=== PATIENT | male | born 1955 | race Caucasian/White ===

== ENCOUNTER 2018-07-25 05:44 | Day surgery (SDC) | payer BC ==
--- NOTE | 2018-07-22 11:28 | HP ---
ANTICIPATED PROCEDURE: Colonoscopy. HISTORY OF PRESENT ILLNESS: The patient has problems with hemorrhoids. He has not had a recent endoscopic examination. He presents for complete evaluation and screening today. PAST MEDICAL HISTORY: ALLERGIES: NKDA. DUST, HAYFEVER. MEDICATIONS: Metoprolol, Zyrtec, Alprazolam. PAST SURGICAL HISTORY: Tonsillectomy. Hemorrhoidectomy. SOCIAL HISTORY: Negative. FAMILY HISTORY: Negative. PHYSICAL EXAMINATION: VITAL SIGNS: Normal. CHEST: Clear. COR: Regular. ABDOMEN: Satisfactory. IMPRESSION: Recent trouble with hemorrhoids. No recent screening. PLAN: He presents for screening.
[2018-07-25] MEDS ORDERED: DIPRIVAN 200 MG/20 ML IV ONE (05:45)
[2018-07-25] MEDS ORDERED: SUBLIMAZE 100 MCG/2 ML IV ONE (05:45)
[2018-07-25] MEDS ORDERED: Ketamine HCl 50 MG/ML IV ONE (05:45)
[2018-07-25] MEDS ORDERED: Lactated Ringers 1,000 ML IV ONE (06:38)
[2018-07-25] MEDS ORDERED: Lactated Ringers 1,000 ML IV SCH (07:00)
[2018-07-25 09:33] VITALS: PULSE 75; O2SAT 97
[2018-07-25 09:39] VITALS: BP 115/60
--- NOTE | 2018-07-25 11:43 | OP ---
SURGERY DATE/TIME: 07/25/2018 0840 PREOPERATIVE DIAGNOSIS: Blood per rectum, previous history of polyps. POSTOPERATIVE DIAGNOSES: 1) Mild to moderate diverticulosis sigmoid. 2) Severe internal and external hemorrhoids. PROCEDURE: Colonoscopy complete to cecum. SURGEON: Mushtaq Hassan M.D. ANESTHESIA: MAC. COMPLICATIONS: None. CONDITION: Stable. INDICATION: A patient requiring evaluation. DESCRIPTION OF PROCEDURE: Taken to endoscopy. MAC sedation provided. Bowel prep was good but not excellent. Scope advanced to the cecum. Base of cecum, ileocecal valve and appendiceal orifice normal. Ascending, hepatic, transverse, splenic, descending, sigmoid mild to moderate diverticulosis. Rectum and anus at least one severe internal and one severe external hemorrhoid. No polyps today. PLAN: Follow up in five years.
== END 2018-07-25 09:58 | disposition home or self-care (01) ==
LOC: SDC 05:44
PROVIDERS: ATTEND Surgery
DX: Z12.11 Encounter for screening for malignant neoplasm of colon (principal); K57.30 Diverticulosis of large intestine without perforation or abscess without bleeding; K64.4 Residual hemorrhoidal skin tags; K64.8 Other hemorrhoids; K62.5 Hemorrhage of anus and rectum; Z86.010 Personal history of colon polyps
CPT/HCPCS: J2704; J3010